=== PATIENT | male | born 1995 | race Caucasian/White ===

== ENCOUNTER 2016-11-26 16:18 | Emergency (ER) | payer MEDICAID ==
[~2016-11-26] VITALS: Ht 157.5 cm; Wt 61.9 kg
[2016-11-26 16:22] VITALS: BP 143/87
== END 2016-11-26 18:16 | disposition left against medical advice (07) ==
LOC: ED 16:18
DX: Z53.21 Procedure and treatment not carried out due to patient leaving prior to being seen by health care provider (principal)